=== PATIENT | female | born 1970 | race Caucasian/White ===

== ENCOUNTER 2023-09-12 17:07 | Observation (INO) ==
[2023-09-12 18:32] LABS: Blood Urea Nitrogen 10 mg/dL (6-20); Calcium 8.9 mg/dL (8.6-10.4); Carbon Dioxide 21 mmol/L (22-30); Chloride 102 mmol/L (96-108); Glomerular Filtration Rate 85; Glucose 78 mg/dL (70-105)
[2023-09-12 18:36] LABS: Basophils # (Auto) 0.01 K/mcL (0.00-0.30); Basophils % (Auto) 0.3 % (0.0-2.0); Eosinophils # (Auto) 0.01 K/mcL (0.00-0.70); Eosinophils % (Auto) 0.3 % (0.0-7.0); Hematocrit 32.5 % (34.1-44.9); Hemoglobin 9.7 g/dL (11.2-15.7); Lymphocytes # (Auto) 1.57 K/mcL (1.50-4.80); Lymphocytes % (Auto) 45.1 % (15.5-49.0); Mean Cell Volume 101.2 fL (80.0-100.0); Mean Corpuscular HGB Conc 29.8 g/dL (31.0-36.0); Mean Platelet Volume 11.6 fL (8.8-12.5); Monocytes # (Auto) 0.33 K/mcL (0.10-0.90); Monocytes % (Auto) 9.5 % (1.0-12.0); Neutrophils % (Auto) 44.8 % (38.0-78.0); Platelet Count 71 K/mcL (140-440); RBC 3.21 M/mcL (3.59-5.38); Red Cell Distribution Width 18.3 % (11.5-14.5); WBC 3.5 K/mcL (4.5-11.0)
[2023-09-12] MEDS: VANCOMYCIN 1,500 MG in 0.9 % SODIUM CHLORIDE 500 ML IV ONE (19:22)
[2023-09-12] MEDS: VANCOMYCIN PER PHARMACY IV ONE ×2 (19:22→23:02)
[2023-09-12] MEDS ORDERED: ACETAMINOPHEN 325 MG TABLET PO PRN (21:44)
[2023-09-12] MEDS ORDERED: traZODone HCL 50 MG TABLET PO PRN (21:44)
[2023-09-12] MEDS ORDERED: ONDANSETRON 4 MG/2 ML VIAL IV PRN (21:44)
[2023-09-12] MEDS ORDERED: IPRATROPIUM/ALBUTEROL 3 ML AMPUL.NEB NEB PRN (21:44)
[2023-09-12] MEDS: VANCOMYCIN 1,000 MG in 0.9 % SODIUM CHLORIDE 250 ML IV ONE (23:00)
[2023-09-12] MEDS: DOCUSATE SODIUM 100 MG CAPSULE PO SCH (23:01)
[2023-09-12] MEDS: SENNOSIDES 1 TABLET PO SCH (23:01)
[2023-09-12] MEDS: cefTRIAXone 2 GM in DEXTROSE 5% IN WATER 50 ML IV SCH (23:01)
[2023-09-12] MEDS: 0.9 % SODIUM CHLORIDE 10 ML SYRINGE IV SCH (23:02)
[2023-09-12] MEDS: cefTRIAXone 2 GM VIAL ONE (23:02)
[2023-09-12] MEDS: morphine 4 MG/ML VIAL IV PRN (23:21)
[2023-09-12] MEDS: METHOCARBAMOL 1,000 MG/10 ML VIAL IV ONE (23:36)
[2023-09-12] MEDS: METHOCARBAMOL 1,000 MG/10 ML VIAL ONE (23:49)
[2023-09-13] MEDS: lamoTRIgine 100 MG TABLET PO ONE (00:16)
[2023-09-13] MEDS: PRAZOSIN 5 MG CAPSULE PO ONE (00:16)
[2023-09-13] MEDS: TOPIRAMATE 100 MG TABLET PO ONE (00:16)
[2023-09-13] MEDS: oxyCODONE IR 5 MG TABLET PO PRN (02:32)
[2023-09-13 06:59] LABS: AST/SGOT 14 U/L (<32); Albumin 3.2 gm/dL (3.2-5.2); Albumin/Globulin Ratio 1.1 (1.0-2.3); Alkaline Phosphatase 57 U/L (39-117); Bilirubin,Total < 0.2 mg/dL (0.1-1.0); Blood Urea Nitrogen 11 mg/dL (6-20); Calcium 8.3 mg/dL (8.6-10.4); Carbon Dioxide 19 mmol/L (22-30); Chloride 104 mmol/L (96-108); Globulin 2.8 gm/dL (2.2-3.7); Glomerular Filtration Rate 100; Glucose 96 mg/dL (70-105)
[2023-09-13 07:03] LABS: Basophils # (Auto) 0.01 K/mcL (0.00-0.30); Basophils % (Auto) 0.3 % (0.0-2.0); Eosinophils # (Auto) 0.02 K/mcL (0.00-0.70); Eosinophils % (Auto) 0.6 % (0.0-7.0); Hematocrit 30.8 % (34.1-44.9); Hemoglobin 9.1 g/dL (11.2-15.7); Lymphocytes # (Auto) 1.39 K/mcL (1.50-4.80); Lymphocytes % (Auto) 43.8 % (15.5-49.0); Mean Cell Volume 104.4 fL (80.0-100.0); Mean Corpuscular HGB Conc 29.5 g/dL (31.0-36.0); Mean Platelet Volume 9.5 fL (8.8-12.5); Monocytes # (Auto) 0.24 K/mcL (0.10-0.90); Monocytes % (Auto) 7.6 % (1.0-12.0); Neutrophils % (Auto) 47.4 % (38.0-78.0); Platelet Count 55 K/mcL (140-440); RBC 2.95 M/mcL (3.59-5.38); Red Cell Distribution Width 18.4 % (11.5-14.5); WBC 3.2 K/mcL (4.5-11.0)
[2023-09-13] MEDS ORDERED: ALBUTEROL SULFATE 60 PUFF INHALER INH PRN (08:23)
[2023-09-13] MEDS ORDERED: METHOCARBAMOL 500 MG TABLET PO PRN (08:23)
[2023-09-13] MEDS ORDERED: IPRATROPIUM/ALBUTEROL SULFATE 1 PUFF INHALER INH PRN (08:42)
[2023-09-13] MEDS ORDERED: PRAMIPEXOLE 0.25 MG TABLET PO PRN (08:43)
[2023-09-13] MEDS ORDERED: traMADol 50 MG TABLET PO PRN (08:46)
[2023-09-13] MEDS: FUROSEMIDE 20 MG TABLET PO SCH (10:45)
[2023-09-13] MEDS: DULoxetine 30 MG CAPSULE PO SCH (10:45)
[2023-09-13] MEDS: TOPIRAMATE 100 MG TABLET PO SCH (10:46)
[2023-09-13] MEDS: ARIPIPRAZOLE 5 MG TABLET PO SCH (10:46)
[2023-09-13] MEDS: lamoTRIgine 100 MG TABLET PO SCH ×2 (10:46→22:47)
[2023-09-13] MEDS: SPIRONOLACTONE 25 MG TABLET PO SCH (10:46)
[2023-09-13] MEDS: FLUTICASONE/SALMETEROL 250/50 INHALER #14 INH SCH (10:47)
[2023-09-13] MEDS: LIDOCAINE 4% TOP PATCH TOPICAL SCH (12:30)
[2023-09-13] MEDS: diphenhydrAMINE 25 MG CAPSULE PO PRN (12:30)
[2023-09-13] MEDS: AMITRIPTYLINE 25 MG TABLET PO SCH (20:09)
[2023-09-13] MEDS: MONTELUKAST 10 MG TABLET PO SCH (20:10)
[2023-09-13] MEDS: PRAZOSIN 1 MG CAPSULE PO SCH (20:11)
[2023-09-13] MEDS ORDERED: MELATONIN 3 MG TABLET PO PRN (20:24)
[2023-09-13] MEDS ORDERED: PRAZOSIN 1 MG CAPSULE PO SCH (21:00)
[2023-09-13] MEDS ORDERED: PRAZOSIN 2 MG CAPSULE PO SCH (21:00)
[2023-09-14 06:27] LABS: Basophils # (Auto) 0.01 K/mcL (0.00-0.30); Basophils % (Auto) 0.3 % (0.0-2.0); Eosinophils # (Auto) 0.02 K/mcL (0.00-0.70); Eosinophils % (Auto) 0.6 % (0.0-7.0); Hematocrit 31.5 % (34.1-44.9); Hemoglobin 9.4 g/dL (11.2-15.7); Lymphocytes # (Auto) 1.52 K/mcL (1.50-4.80); Lymphocytes % (Auto) 42.8 % (15.5-49.0); Mean Cell Volume 104.3 fL (80.0-100.0); Mean Corpuscular HGB Conc 29.8 g/dL (31.0-36.0); Monocytes # (Auto) 0.28 K/mcL (0.10-0.90); Monocytes % (Auto) 7.9 % (1.0-12.0); Neutrophils % (Auto) 48.1 % (38.0-78.0); Platelet Count 64 K/mcL (140-440); RBC 3.02 M/mcL (3.59-5.38); Red Cell Distribution Width 18.2 % (11.5-14.5); WBC 3.6 K/mcL (4.5-11.0)
[2023-09-14 07:06] LABS: ALT/SGPT < 5 U/L (<40); AST/SGOT 15 U/L (<32); Albumin 3.5 gm/dL (3.2-5.2); Albumin/Globulin Ratio 1.1 (1.0-2.3); Alkaline Phosphatase 77 U/L (39-117); Bilirubin,Total < 0.2 mg/dL (0.1-1.0); Blood Urea Nitrogen 12 mg/dL (6-20); Calcium 8.6 mg/dL (8.6-10.4); Carbon Dioxide 22 mmol/L (22-30); Chloride 104 mmol/L (96-108); Globulin 3.2 gm/dL (2.2-3.7); Glomerular Filtration Rate 100; Glucose 96 mg/dL (70-105)
[2023-09-14] MEDS: PANTOPRAZOLE 40 MG TABLET PO SCH (07:57)
[2023-09-14 08:00] VITALS: TEMP 97.5; O2SAT 100
[2023-09-20] MEDS ORDERED: ERGOCALCIFEROL (VITAMIN D2) 50,000 UNIT CAPSULE PO SCH (09:00)
== END 2023-09-14 11:40 | disposition home or self-care (01) ==
LOC: ED 17:07 → MEDSUR 17:07
PROVIDERS: ADMIT Internal Medicine; ATTEND Internal Medicine